=== PATIENT | female | born 1955 | race Caucasian/White ===

== ENCOUNTER 2019-02-02 07:51 | Emergency (ER) | payer BC ==
--- OUTSIDE RECORDS SUMMARY | 2019-02-02 07:57 | XMS REPORT | Continuity of Care Document ---
:1955 External Reference #:[id number] Author Name Raymon Mendenhall M.D. Address [address] [place] [address] Care Team Providers Name Role Phone Yadi Hansen M.D. Primary Care Physician Unavailable Payers Date Identification Numbers Payment Provider Subscriber Policy Number: [id number] [facility] Vania Gold PayID: [id number] [address] [place] [address] Problems Active Problems Provider Date Nuclear senile cataract Mari Fleming O.D. Onset: 04/25/2015 Vitreous degeneration Mari Fleming O.D. Onset: 04/25/2015 Myopia Mari Fleming O.D. Onset: 04/25/2015 Regular astigmatism Mari Fleming O.D. Onset: 04/25/2015 Presbyopia Mari Fleming O.D. Onset: 04/25/2015 Posterior subcapsular polar senile cataract Mari Fleming O.D. Onset: 04/29 Combined form of senile cataract Raymon Mendenhall M.D. Onset: 07/20/2018 Family History Date Family Member(s) Observation Comments Father Diabetes Mellitus Type 2 Father Prostate Cancer Father Pacemaker Father Atrial Fibrillation Mother Glaucoma Mother Colon Cancer Social History Type Date Description Comments Sex Unknown Marital Status Single Occupation [employer] Work Status Full-Time Employment ETOH Use Occasionally consumes alcohol Tobacco Use Start: Unknown Patient has never smoked Recreational Drug Use Never Used Drugs Smoking Status Reviewed: 01/20/19 Patient has never smoked Allergies, Adverse Reactions, Alerts Active Allergies Reaction Severity Comments Date Andrew 04/25/2015 Chocolate 04/25/2015 Medications Active Medications SIG Qnty Indications Ordering Provider Date Aspirin Ec twice a day by Unknown 81mg Tablets DR mouth Caltrate 600 Unknown 1500mg Tablets [place] 3 1 by mouth every Unknown 1000mg Capsules day Atorvastatin Calcium 1 tablet daily Unknown 40mg Tablets Centrum Women 1 tab po daily Unknown Tablets History Medications Multivitamins Capsules Unknown - 2016 Procedures Date Code Description Status 07/20/2018 20690 Determination Of Refractive State Completed 07/20/2018 70526 Est Patient Comprehensive Exam Completed 04/29/2017 93061 Determination Of Refractive State Completed 04/29/2017 75332 Est Patient Comprehensive Exam Completed 04/25/2015 54050 Determination Of Refractive State Completed 04/25/2015 93980 Est Patient Comprehensive Exam Completed 02/09/2013 25679 Determination Of Refractive State Completed 02/09/2013 33847 New Patient Comprehensive Exam Completed 09/19/2009 53361 Determination Of Refractive State Completed 09/19/2009 04647 Est Patient Comprehensive Exam Completed 04/13/2007 22462 Determination Of Refractive State Completed 04/13/2007 99254 Est Patient Comprehensive Exam Completed 05/01/2005 82217 Determination Of Refractive State Completed 05/01/2005 64013 Est Patient Comprehensive Exam Completed Plan of Treatment 01/20/2019 - Raymon Mendenhall M.D.H25.813 Combined forms of age-related cataract , bilateralComments:Smoking can increase the risk of developing or worsening any eye related disease, as well as affect your overall health. If you are a smoker, we strongly recommend that you quit.If you are not a smoker, we strongly recommend that you do not start. You have been diagnosed with cataracts. If you are happy with your vision as it is now, then we will see you at your next scheduled appointment. If you feel like your vision is getting worse before your scheduled appointment, please call Carolyn at [phone].Follow up:6 Month Follow Up Diagnostic Refraction You can expect to have your eyes dilated at your next visit. If Dr. Mendenhall orders any additional testing, it may require extra time. We recommend that you bring sunglasses, as dilation drops often make you light sensitive until they wear off. We always recommend you bring someone to drive you home if you are uncomfortable driving with your eyes dilated. If you have any questions before your next visit, feel free to call our office at .
[2019-02-02 08:09] VITALS: BP 128/86
--- NOTE | 2019-02-02 08:17 | UC ---
Back Pain HPI - HPI Summary HPI Summary: 63-year-old female who slipped on water last evening and when she fell she hit her right posterior ribs on a dog bowl that was elevated on the floor. She did not hit her head and she has no neck pain. - History of Current Complaint Chief Complaint: UCBackPain Stated Complaint: BACK PAIN Time Seen by Provider: 02/02/19 08:17 Hx Obtained From: Patient ?: No Onset/Duration: Sudden Onset Timing: Intermittent Severity Initially: Mild Severity Currently: Mild Pain Intensity: 5 Character: Dull, Aching Aggravating Factor(s): Movement, Lifting, Cough Alleviating Factor(s): Rest Associated Signs And Symptoms: Positive: Bruising - Allergies/Home Medications Allergies/Adverse Reactions: Allergies Allergy/AdvReac Type Severity Reaction Status Date / Time No Known Allergies Allergy Verified 02/02/19 08:09 Home Medications: Home Medications Aspirin 81 mg CHEW TAB* [Aspirin Low Dose TAB*] 81 mg PO DAILY 02/02/19 [ History Confirmed 02/02/19] Atorvastatin* [Lipitor*] 40 mg PO DAILY 02/02/19 [History Confirmed 02/02/19] Calcium Carbonate [Calcium] 500 mg PO DAILY 02/02/19 [History Confirmed 02/02/19 ] Ibuprofen TAB* [Advil TAB*] 200 mg PO Q6H PRN 02/02/19 [History Confirmed ] Multivitamin [Multivitamins] 1 cap PO DAILY 02/02/19 [History Confirmed 02/02/19 ] [place]-3 Fatty Acids/Fish Oil [[place] 3] 1 cap PO DAILY 02/02/19 [History Confirmed 02/02/19] PMH/Surg Hx/FS Hx/Imm Hx Previously Healthy: Yes - Surgical History Surgical History: None - Family History Known Family History: Positive: Non-Contributory - Social History Alcohol Use: Weekly Substance Use Type: None Smoking Status (MU): Never Smoked Tobacco Review of Systems All Other Systems Reviewed And Are Negative: Yes Skin: Positive: Bruising - Bruising to right posterior ribs midportion. Is Patient Immunocompromised?: No Physical Exam Triage Information Reviewed: Yes Appearance: Well-Appearing, No Pain Distress, Well-Nourished Vital Signs: Initial Vital Signs Temp 97.8 F 02/02/19 08:02 Pulse 84 07/31/19 08:02 Resp 16 02/02/19 08:02 BP 128/86 02/02/19 08:02 Pulse Ox 97 02/02/19 08:02 Vital Signs Reviewed: Yes Respiratory: Positive: Lungs clear, Normal breath sounds, No respiratory distress, No accessory muscle use, Other: - Bruising to right posterior ribs midportion, no crepitus, no erythema, deformity, swelling. There is bruising present, with mild tenderness on palpation. Cardiovascular: Positive: RRR, No Murmur, Pulses Normal, Brisk Capillary Refill Musculoskeletal Exam: Normal Neurological Exam: Normal Psychological Exam: Normal Skin: Positive: Other - See above notes. Back Pain Course/Dx - Course Course Of Treatment: The patient is comfortable here and in no distress. Chest x-ray was negative. She is to apply ice intermittently throughout the day today and tomorrow and follow-up in the emergency room if she develops any chest pain or difficulty breathing. - Differential Dx/Diagnosis Provider Diagnosis: Contusion of rib on right side Discharge - Sign-Out/Discharge Documenting (check all that apply): Patient Departure All imaging exams completed and their final reports reviewed: Yes - Discharge Plan Condition: Fair Disposition: HOME Patient Education Materials: Rib Contusion (ED) Referrals: [facility] [Outside] No Primary Care Phys,NOPCP [Primary Care Provider] - Additional Instructions: Apply ice to the sore area on 20 minutes off 20 minutes over the next day or 2. Tylenol or ibuprofen for pain. Definite follow-up with your primary care provider if no improvement in 4 or 5 days. Avoid movements that cause pain. If you develop any difficulty breathing you are to go to the emergency room. - Billing Disposition and Condition Condition: FAIR Disposition: Home - Attestation Statements Provider Attestation: I was available for consult. This patient was seen by the LATOYA. The patient was not presented to, seen by, or examined by me. Jhony Lee MD
== END 2019-02-02 09:00 | disposition home or self-care (01) ==
LOC: UCEAST 07:51
DX: S20.211A Contusion of right front wall of thorax, initial encounter (principal); W01.198A Fall on same level from slipping, tripping and stumbling with subsequent striking against other object, initial encounter; Y92.010 Kitchen of single-family (private) house as the place of occurrence of the external cause; Z79.82 Long term (current) use of aspirin
CPT/HCPCS: 71046; 99201; G0463